=== PATIENT | male | born 1950 | race Caucasian/White ===

== ENCOUNTER 2023-08-01 07:34 | Inpatient (IN) ==
[2023-08-01] MEDS ORDERED: IOPAMIDOL 100 ML BOTTLE IV ONE (07:35)
[2023-08-01] MEDS: 0.9 % SODIUM CHLORIDE 1,000 ML IV ONE (08:36)
[2023-08-01] MEDS: ACETAMINOPHEN 500 MG TABLET PO ONE (08:41)
[2023-08-01 08:57] LABS: ABG Methemoglobin 0.3 % (0.4-1.5); Total Hemoglobin 13.3 gm/Dl (13.5-16.5); VBG Base Excess 2 (-2-3); VBG HCO3 25.8 mmol/L (24.0-28.0); VBG Oxygen Saturation 86.7 % (40.0-70.0); VBG PCO2 37.4 mmHg (41.0-51.0); VBG PH 7.46 U (7.32-7.42); VBG PO2 56.5 mmHg (25.0-40.0)
[2023-08-01 09:01] LABS: Basophils # (Auto) 0.01 K/mcL (0.00-0.30); Basophils % (Auto) 0.4 % (0.0-2.0); Eosinophils # (Auto) 0.03 K/mcL (0.00-0.70); Eosinophils % (Auto) 1.3 % (0.0-7.0); Hematocrit 36.2 % (40.1-51.0); Hemoglobin 11.6 g/dL (13.7-17.5); Lymphocytes # (Auto) 0.11 K/mcL (1.50-4.80); Lymphocytes % (Auto) 4.8 % (15.5-49.0); Mean Cell Volume 101.1 fL (80.0-100.0); Mean Platelet Volume 10.6 fL (8.8-12.5); Monocytes # (Auto) 0.27 K/mcL (0.10-0.90); Monocytes % (Auto) 11.7 % (1.0-12.0); Platelet Count 82 K/mcL (140-440); RBC 3.58 M/mcL (4.63-6.08); Red Cell Distribution Width 15.1 % (11.5-14.5); WBC 2.3 K/mcL (4.5-11.0)
[2023-08-01 09:09] LABS: ALT/SGPT 77 U/L (<40); AST/SGOT 75 U/L (<40); Albumin 3.2 gm/dL (3.2-5.2); Albumin/Globulin Ratio 1.3 (1.0-2.3); Alkaline Phosphatase 73 U/L (39-117); Bilirubin,Total 0.6 mg/dL (0.1-1.0); Blood Urea Nitrogen 20 mg/dL (8-23); Calcium 8.5 mg/dL (8.6-10.4); Carbon Dioxide 24 mmol/L (22-30); Chloride 103 mmol/L (96-108); Globulin 2.4 gm/dL (2.2-3.7); Glomerular Filtration Rate 92; Glucose 132 mg/dL (70-105)
[2023-08-01 10:10] LABS: INR 1.4 (0.9-1.1)
[2023-08-01] MEDS: cefTRIAXone 2 GM in DEXTROSE 5% IN WATER 50 ML IV ONE (10:50)
[2023-08-01 10:55] LABS: Appearance,Urine Clear (Clear); Bilirubin,Urine Negative (Negative); Color,Urine Yellow; Culture Indicated,Urine No; Glucose,Urine (UA) Negative (Negative); Ketones,Urine Negative (Negative); Leukocyte Esterase,Urine Negative /uL (Negative); Nitrate,Urine Negative (Negative); PH,Urine 6.5 (5.0-9.0); Protein,Urine 30 mg/dL (Negative); Specific Gravity,Urine 1.015 (1.000-1.035); Urine Blood Negative ery/mcL (Negative); Urine RBC 0 /hpf (0-3); Urine Squamous Epithelial Cell 0 /hpf (0-4); Urine WBC 0 /hpf (0-4); Urobilinogen,Urine Normal
[2023-08-01] MEDS: AZITHROMYCIN 500 MG in DEXTROSE 5% IN WATER 250 ML IV ONE (11:17)
[2023-08-01] MEDS: methylPREDNISolone SOD SUCC 125 MG/2 ML VIAL IV ONE (11:17)
[2023-08-01] MEDS ORDERED: SENNOSIDES 1 TABLET PO PRN (12:26)
[2023-08-01] MEDS ORDERED: LACTULOSE 20 GM/30 ML ORAL.SOL PO PRN (12:26)
[2023-08-01] MEDS ORDERED: ONDANSETRON 4 MG/2 ML VIAL IV PRN (12:26)
[2023-08-01] MEDS ORDERED: BISACODYL 5 MG TABLET PO PRN (12:28)
[2023-08-01] MEDS ORDERED: MAGNESIUM HYDROXIDE 30 ML ORAL.SUSP PO PRN (12:28)
[2023-08-01] MEDS: DOXYCYCLINE 100 MG in DEXTROSE 5% IN WATER 100 ML IV SCH (14:18)
[2023-08-01] MEDS: LACTATED RINGERS 1,000 ML IV SCH (14:18)
[2023-08-01] MEDS: 0.9 % SODIUM CHLORIDE 10 ML SYRINGE IV SCH ×2 (14:18→21:58)
[2023-08-01] MEDS: IPRATROPIUM/ALBUTEROL 3 ML AMPUL.NEB NEB PRN (19:38)
[2023-08-01] MEDS: BENZONATATE 100 MG CAPSULE PO SCH (21:58)
[2023-08-01] MEDS: APIXABAN 5 MG TABLET PO SCH (21:58)
[2023-08-02] MEDS ORDERED: cefTRIAXone 1 GM in DEXTROSE 5% IN WATER 50 ML IV SCH (07:00)
[2023-08-02 07:33] LABS: Basophils # (Auto) 0.01 K/mcL (0.00-0.30); Basophils % (Auto) 0.3 % (0.0-2.0); Eosinophils # (Auto) 0 K/mcL (0.00-0.70); Eosinophils % (Auto) 0 % (0.0-7.0); Hematocrit 35.9 % (40.1-51.0); Hemoglobin 11.4 g/dL (13.7-17.5); Lymphocytes # (Auto) 0.12 K/mcL (1.50-4.80); Lymphocytes % (Auto) 3.9 % (15.5-49.0); Mean Cell Volume 102.6 fL (80.0-100.0); Mean Corpuscular HGB Conc 31.8 g/dL (31.0-36.0); Mean Platelet Volume 11.3 fL (8.8-12.5); Monocytes # (Auto) 0.27 K/mcL (0.10-0.90); Monocytes % (Auto) 8.8 % (1.0-12.0); Neutrophils % (Auto) 80.2 % (38.0-78.0); Platelet Count 91 K/mcL (140-440); Red Cell Distribution Width 15.1 % (11.5-14.5); WBC 3.1 K/mcL (4.5-11.0)
[2023-08-02 07:37] LABS: ALT/SGPT 64 U/L (<40); AST/SGOT 51 U/L (<40); Albumin/Globulin Ratio 1.3 (1.0-2.3); Alkaline Phosphatase 70 U/L (39-117); Bilirubin,Total 0.4 mg/dL (0.1-1.0); Blood Urea Nitrogen 20 mg/dL (8-23); Calcium 8.6 mg/dL (8.6-10.4); Carbon Dioxide 24 mmol/L (22-30); Chloride 104 mmol/L (96-108); Globulin 2.3 gm/dL (2.2-3.7); Glomerular Filtration Rate 98; Glucose 137 mg/dL (70-105)
[2023-08-02] MEDS: METOPROLOL SUCCINATE 25 MG TAB.XL.24H PO SCH (08:19)
[2023-08-02] MEDS: LEVOTHYROXINE 88 MCG TABLET PO SCH (08:20)
[2023-08-02] MEDS: GABAPENTIN 300 MG CAPSULE PO SCH (08:20)
[2023-08-02] MEDS: MULTIVIT,THER IRON,CA,FA & MIN 1 TABLET PO SCH (08:21)
[2023-08-02] MEDS: CALCIUM W/VIT D3 500 MG TABLET PO SCH (08:22)
[2023-08-02] MEDS: VITAMIN B COMPLEX 1 CAPSULE PO SCH (08:22)
[2023-08-02] MEDS: methylPREDNISolone SOD SUCC 125 MG/2 ML VIAL IV SCH (08:23)
[2023-08-02] MEDS: cefTRIAXone 1 GM VIAL IV SCH (08:23)
[2023-08-02] MEDS: ACETAMINOPHEN 325 MG TABLET PO PRN (08:23)
[2023-08-02] MEDS ORDERED: NON FORMULARY MEDICATION 1 DOSE MISCELL (Alpha Lipoic Acid 600 mg capsule) PO SCH (09:00)
[2023-08-02] MEDS ORDERED: COENZYME Q10 100 MG PO SCH (09:00)
[2023-08-02] MEDS ORDERED: methylPREDNISolone SOD SUCC 40 MG/ML VIAL IV SCH (09:00)
[2023-08-02] MEDS: valACYclovir 500 MG TABLET PO SCH (10:40)
[2023-08-02] MEDS: VITAMIN E (DL,TOCOPHERYL ACET) 400 UNIT CAPSULE PO SCH (10:59)
[2023-08-02] MEDS ORDERED: LOPERAMIDE 2 MG CAPSULE PO PRN (14:16)
[2023-08-02] MEDS: LOPERAMIDE 2 MG CAPSULE PO ONE (14:33)
[2023-08-02] MEDS: guaiFENesin 600 MG TAB.SR.12H PO PRN (14:33)
[2023-08-02] MEDS: SERTRALINE 50 MG TABLET PO SCH (20:32)
[2023-08-02] MEDS: CYANOCOBALAMIN (VITAMIN B-12) 500 MCG TABLET PO SCH (20:32)
[2023-08-02] MEDS: PYRIDOXINE 100 MG TABLET PO SCH (20:34)
[2023-08-02] MEDS ORDERED: VIT C E ZN COPPR LUTEIN ZEAXAN PO SCH (21:00)
[2023-08-02] MEDS ORDERED: [UNRECOGNIZED DRUG - OTHER] PO SCH (21:00)
[2023-08-02] MEDS ORDERED: APIXABAN 5 MG TABLET PO SCH (21:00)
[2023-08-03 06:38] LABS: ALT/SGPT 75 U/L (<40); AST/SGOT 58 U/L (<40); Albumin 3.1 gm/dL (3.2-5.2); Albumin/Globulin Ratio 1.3 (1.0-2.3); Alkaline Phosphatase 73 U/L (39-117); Bilirubin,Direct 0.2 mg/dL (<0.3); Bilirubin,Total 0.7 mg/dL (0.1-1.0); Blood Urea Nitrogen 19 mg/dL (8-23); Calcium 8.5 mg/dL (8.6-10.4); Carbon Dioxide 26 mmol/L (22-30); Chloride 102 mmol/L (96-108); Globulin 2.4 gm/dL (2.2-3.7); Glomerular Filtration Rate 98; Glucose 100 mg/dL (70-105); Lactate Dehydrogenase 325 U/L (135-225); Phosphorous 2.8 mg/dL (2.5-4.5); Triglycerides 123 mg/dL (<150); Uric Acid 3.8 mg/dL (2.5-8.0)
[2023-08-03 06:40] LABS: Basophils # (Auto) 0.01 K/mcL (0.00-0.30); Basophils % (Auto) 0.4 % (0.0-2.0); Eosinophils # (Auto) 0 K/mcL (0.00-0.70); Eosinophils % (Auto) 0 % (0.0-7.0); Hematocrit 37.7 % (40.1-51.0); Hemoglobin 12.1 g/dL (13.7-17.5); Lymphocytes # (Auto) 0.17 K/mcL (1.50-4.80); Lymphocytes % (Auto) 6.4 % (15.5-49.0); Mean Cell Volume 100.5 fL (80.0-100.0); Mean Corpuscular HGB Conc 32.1 g/dL (31.0-36.0); Mean Platelet Volume 11.3 fL (8.8-12.5); Monocytes # (Auto) 0.19 K/mcL (0.10-0.90); Monocytes % (Auto) 7.1 % (1.0-12.0); Neutrophils % (Auto) 73.7 % (38.0-78.0); Platelet Count 80 K/mcL (140-440); RBC 3.75 M/mcL (4.63-6.08); Red Cell Distribution Width 14.9 % (11.5-14.5); WBC 2.7 K/mcL (4.5-11.0)
[2023-08-03] MEDS: ALBUMIN HUMAN 12.5 GM/50 ML VIAL IV ONE (08:44)
[2023-08-03] MEDS: ATORVASTATIN 40 MG TABLET PO SCH (08:45)
[2023-08-03] MEDS: FUROSEMIDE 40 MG/4 ML VIAL IV ONE ×2 (09:00→16:22)
[2023-08-04 05:58] LABS: Basophils # (Auto) 0.01 K/mcL (0.00-0.30); Basophils % (Auto) 0.3 % (0.0-2.0); Eosinophils # (Auto) 0.01 K/mcL (0.00-0.70); Eosinophils % (Auto) 0.3 % (0.0-7.0); Hematocrit 36.5 % (40.1-51.0); Hemoglobin 11.8 g/dL (13.7-17.5); Lymphocytes # (Auto) 0.17 K/mcL (1.50-4.80); Lymphocytes % (Auto) 5.5 % (15.5-49.0); Mean Cell Volume 99.7 fL (80.0-100.0); Mean Corpuscular HGB Conc 32.3 g/dL (31.0-36.0); Mean Platelet Volume 12.1 fL (8.8-12.5); Monocytes # (Auto) 0.19 K/mcL (0.10-0.90); Monocytes % (Auto) 6.1 % (1.0-12.0); Neutrophils % (Auto) 78.1 % (38.0-78.0); Platelet Count 83 K/mcL (140-440); RBC 3.66 M/mcL (4.63-6.08); Red Cell Distribution Width 14.9 % (11.5-14.5); WBC 3.1 K/mcL (4.5-11.0)
[2023-08-04 06:29] LABS: ALT/SGPT 78 U/L (<40); AST/SGOT 52 U/L (<40); Albumin 3.2 gm/dL (3.2-5.2); Albumin/Globulin Ratio 1.5 (1.0-2.3); Alkaline Phosphatase 73 U/L (39-117); Bilirubin,Direct 0.2 mg/dL (<0.3); Bilirubin,Total 0.6 mg/dL (0.1-1.0); Blood Urea Nitrogen 28 mg/dL (8-23); Calcium 8.7 mg/dL (8.6-10.4); Carbon Dioxide 29 mmol/L (22-30); Chloride 100 mmol/L (96-108); Globulin 2.2 gm/dL (2.2-3.7); Glomerular Filtration Rate 92; Glucose 112 mg/dL (70-105); Lactate Dehydrogenase 305 U/L (135-225); Triglycerides 91 mg/dL (<150); Uric Acid 4.7 mg/dL (2.5-8.0)
[2023-08-04] MEDS: PANTOPRAZOLE 40 MG PACKET PO SCH (09:06)
[2023-08-04] MEDS: methylPREDNISolone SOD SUCC 125 MG/2 ML VIAL IV SCH (10:57)
[2023-08-05 07:02] LABS: Basophils # (Auto) 0.01 K/mcL (0.00-0.30); Basophils % (Auto) 0.3 % (0.0-2.0); Eosinophils # (Auto) 0 K/mcL (0.00-0.70); Eosinophils % (Auto) 0 % (0.0-7.0); Hematocrit 36.9 % (40.1-51.0); Hemoglobin 11.9 g/dL (13.7-17.5); Lymphocytes # (Auto) 0.18 K/mcL (1.50-4.80); Lymphocytes % (Auto) 4.9 % (15.5-49.0); Mean Cell Volume 99.7 fL (80.0-100.0); Mean Corpuscular HGB Conc 32.2 g/dL (31.0-36.0); Mean Platelet Volume 12.3 fL (8.8-12.5); Monocytes # (Auto) 0.17 K/mcL (0.10-0.90); Monocytes % (Auto) 4.6 % (1.0-12.0); Neutrophils % (Auto) 79.1 % (38.0-78.0); Platelet Count 91 K/mcL (140-440); Red Cell Distribution Width 14.7 % (11.5-14.5); WBC 3.7 K/mcL (4.5-11.0)
[2023-08-05 07:47] LABS: Blood Urea Nitrogen 27 mg/dL (8-23); Calcium 8.7 mg/dL (8.6-10.4); Carbon Dioxide 28 mmol/L (22-30); Chloride 99 mmol/L (96-108); Glomerular Filtration Rate 98; Glucose 145 mg/dL (70-105)
[2023-08-05] MEDS: BENZONATATE 100 MG CAPSULE PO PRN (18:51)
[2023-08-05] MEDS: methylPREDNISolone SOD SUCC 40 MG/ML VIAL IV SCH (20:38)
[2023-08-06 06:20] LABS: Basophils # (Auto) 0.01 K/mcL (0.00-0.30); Basophils % (Auto) 0.3 % (0.0-2.0); Eosinophils # (Auto) 0 K/mcL (0.00-0.70); Eosinophils % (Auto) 0 % (0.0-7.0); Hematocrit 37.7 % (40.1-51.0); Hemoglobin 12.1 g/dL (13.7-17.5); Lymphocytes # (Auto) 0.16 K/mcL (1.50-4.80); Mean Cell Volume 99.7 fL (80.0-100.0); Mean Corpuscular HGB Conc 32.1 g/dL (31.0-36.0); Mean Platelet Volume 12.3 fL (8.8-12.5); Monocytes # (Auto) 0.15 K/mcL (0.10-0.90); Monocytes % (Auto) 4.7 % (1.0-12.0); Neutrophils % (Auto) 82.2 % (38.0-78.0); Platelet Count 92 K/mcL (140-440); RBC 3.78 M/mcL (4.63-6.08); Red Cell Distribution Width 14.9 % (11.5-14.5); WBC 3.2 K/mcL (4.5-11.0)
[2023-08-06 06:37] LABS: ALT/SGPT 96 U/L (<40); AST/SGOT 54 U/L (<40); Albumin 3.2 gm/dL (3.2-5.2); Albumin/Globulin Ratio 1.4 (1.0-2.3); Alkaline Phosphatase 77 U/L (39-117); Bilirubin,Direct < 0.2 mg/dL (0-0.3); Bilirubin,Total 0.5 mg/dL (0.1-1.0); Blood Urea Nitrogen 28 mg/dL (8-23); Calcium 8.7 mg/dL (8.6-10.4); Carbon Dioxide 28 mmol/L (22-30); Chloride 101 mmol/L (96-108); Globulin 2.3 gm/dL (2.2-3.7); Glomerular Filtration Rate 98; Glucose 137 mg/dL (70-105); Lactate Dehydrogenase 286 U/L (135-225); Phosphorous 3.8 mg/dL (2.5-4.5); Triglycerides 104 mg/dL (<150); Uric Acid 4.1 mg/dL (2.5-8.0)
[2023-08-06] MEDS: guaiFENesin/CODEINE 10 ML UDC PO PRN (09:01)
[2023-08-07] MEDS: predniSONE 20 MG TABLET PO SCH (08:23)
[2023-08-08 06:47] LABS: Basophils # (Auto) 0.01 K/mcL (0.00-0.30); Basophils % (Auto) 0.3 % (0.0-2.0); Eosinophils # (Auto) 0.03 K/mcL (0.00-0.70); Eosinophils % (Auto) 0.9 % (0.0-7.0); Hematocrit 39.5 % (40.1-51.0); Hemoglobin 12.6 g/dL (13.7-17.5); Lymphocytes % (Auto) 6.3 % (15.5-49.0); Mean Cell Volume 100.5 fL (80.0-100.0); Mean Corpuscular HGB Conc 31.9 g/dL (31.0-36.0); Mean Platelet Volume 11.9 fL (8.8-12.5); Monocytes % (Auto) 9.4 % (1.0-12.0); Neutrophils % (Auto) 75.2 % (38.0-78.0); Platelet Count 82 K/mcL (140-440); RBC 3.93 M/mcL (4.63-6.08); Red Cell Distribution Width 14.7 % (11.5-14.5); WBC 3.2 K/mcL (4.5-11.0)
[2023-08-08 07:11] LABS: ALT/SGPT 73 U/L (<40); AST/SGOT 37 U/L (<40); Albumin 3.1 gm/dL (3.2-5.2); Albumin/Globulin Ratio 1.3 (1.0-2.3); Alkaline Phosphatase 76 U/L (39-117); Bilirubin,Total 0.5 mg/dL (0.1-1.0); Blood Urea Nitrogen 27 mg/dL (8-23); Calcium 8.7 mg/dL (8.6-10.4); Carbon Dioxide 28 mmol/L (22-30); Chloride 102 mmol/L (96-108); Globulin 2.3 gm/dL (2.2-3.7); Glomerular Filtration Rate 98; Glucose 94 mg/dL (70-105)
[2023-08-09 06:34] LABS: ALT/SGPT 65 U/L (<40); AST/SGOT 32 U/L (<40); Albumin/Globulin Ratio 1.4 (1.0-2.3); Alkaline Phosphatase 76 U/L (39-117); Bilirubin,Total 0.4 mg/dL (0.1-1.0); Blood Urea Nitrogen 27 mg/dL (8-23); Calcium 8.5 mg/dL (8.6-10.4); Carbon Dioxide 30 mmol/L (22-30); Chloride 103 mmol/L (96-108); Globulin 2.1 gm/dL (2.2-3.7); Glomerular Filtration Rate 98; Glucose 101 mg/dL (70-105)
[2023-08-09 06:46] LABS: Basophils # (Auto) 0.01 K/mcL (0.00-0.30); Basophils % (Auto) 0.3 % (0.0-2.0); Eosinophils # (Auto) 0.04 K/mcL (0.00-0.70); Eosinophils % (Auto) 1.2 % (0.0-7.0); Hematocrit 38.2 % (40.1-51.0); Hemoglobin 12.2 g/dL (13.7-17.5); Lymphocytes # (Auto) 0.25 K/mcL (1.50-4.80); Lymphocytes % (Auto) 7.6 % (15.5-49.0); Mean Cell Volume 101.1 fL (80.0-100.0); Mean Corpuscular HGB Conc 31.9 g/dL (31.0-36.0); Mean Platelet Volume 12.6 fL (8.8-12.5); Monocytes # (Auto) 0.29 K/mcL (0.10-0.90); Monocytes % (Auto) 8.8 % (1.0-12.0); Neutrophils % (Auto) 72.4 % (38.0-78.0); Platelet Count 82 K/mcL (140-440); RBC 3.78 M/mcL (4.63-6.08); Red Cell Distribution Width 14.8 % (11.5-14.5); WBC 3.3 K/mcL (4.5-11.0)
[2023-08-09] MEDS: HEPARIN SODIUM,PORCINE/PF 500 UNIT/5 ML SYRINGE IV ONE (12:04)
== END 2023-08-09 12:20 | disposition home or self-care (01) | DRG 193 ==
LOC: ED 07:34 → ICU 12:53
PROVIDERS: ADMIT Student in an Organized Health Care Education/Training Program; ATTEND Student in an Organized Health Care Education/Training Program